=== PATIENT | male | born 1965 | race Caucasian/White ===

== ENCOUNTER 2022-12-31 17:42 | Emergency (ER) | payer OTHER ==
[~2022-12-31] VITALS: Ht 175.3 cm; Wt 131.5 kg
[2022-12-31 17:52] VITALS: BP 144/99
== END 2023-01-01 05:28 | disposition home or self-care (01) ==
LOC: EDH 19:51
DX: M25.562 Pain in left knee (principal); Z53.21 Procedure and treatment not carried out due to patient leaving prior to being seen by health care provider